=== PATIENT | male | born 1995 | race Caucasian/White ===

== ENCOUNTER 2016-08-18 17:46 | Emergency (ER) | payer OTHER ==
--- NOTE | 2016-08-18 19:05 | EDPHY ---
H & P Stated Complaint: sent from [facility] with spontaneous pneumo Time Seen by Provider: 08/18/16 17:56 HPI/ROS: CHIEF COMPLAINT: Spontaneous pneumothorax HISTORY OF PRESENT ILLNESS: The patient is referred to the emergency department from the [facility] after he was noted to have a spontaneous pneumothorax. The patient has approximately 10-15 percent right- sided pneumothorax which was diagnosed on chest x-ray. The patient reportedly developed symptoms while running yesterday. The patient denies prior history of pneumothorax. The patient denies additional complaints of lightheadedness, dizziness or significant pain. The patient has no significant past medical history. The patient takes no medications. The patient does not smoke. REVIEW OF SYSTEMS: A comprehensive 10 point review of systems is otherwise negative aside from elements mentioned in the history of present illness. Source: Patient Exam Limitations: No limitations - Personal History Current Tetanus/Diphtheria Vaccine: Yes - Medical/Surgical History Hx Asthma: No Hx Chronic Respiratory Disease: No Hx Diabetes: No Hx Cardiac Disease: No Hx Renal Disease: No Hx Cirrhosis: No Hx Alcoholism: No Hx HIV/AIDS: No Hx Splenectomy or Spleen Trauma: No Other PMH: denies - Social History Smoking Status: Never smoked - Physical Exam Exam: General Appearance: Alert, no distress Eyes: Pupils equal and round no pallor or injection ENT, Mouth: Mucous membranes moist Respiratory: There are no retractions, lungs are clear to auscultation Cardiovascular: Regular rate and rhythm Gastrointestinal: Abdomen is soft and nontender, no masses, bowel sounds normal Neurological: A&O, normal motor function, normal sensory exam, normal cranial nerves Skin: Warm and dry, no rashes Musculoskeletal: Neck is supple nontender Extremities: symmetrical, full range of motion Constitutional: Initial Vital Signs Temperature (C) 36.4 C 08/18/16 17:50 Heart Rate 63 08/18/16 17:50 Respiratory Rate 18 08/18/16 17:50 Blood Pressure 132/79 H 08/18/16 17:50 O2 Sat (%) 98 08/18/16 17:50 O2 Delivery Mode Room Air Allergies/Adverse Reactions: amoxicillin Allergy (Verified 08/18/16 17:50) Home Medications: Medication Instructions Recorded NK [No Known Home Meds] 08/18/16 Medical Decision Making - Diagnostics Imaging Results: Imaging Impressions Chest X-Ray 08/18/16 17:57 Impression: Equivocal increase in size of a [id number] right pneumothorax. Findings discussed with Kieran DENNIS 08/18/2016 at 18:50. ED Course/Re-evaluation: The patient presents to the ED with a small right apical pneumothorax. Consultation was made with Dr. Flores from General surgery who evaluated the patient in the ED. Given the size of the pneumothorax, our plan at this point will be observation this evening and a repeat chest x-ray in the ED tomorrow morning. If the pneumothorax has increased in size at that point time a chest tube will be placed. The patient is instructed to return to the ED for increasing chest pain, difficulty breathing or other concerns. Differential Diagnosis: Differential diagnosis considered includes pneumothorax, rib fracture, hemothorax Departure - Departure Disposition: Home, Routine, Self-Care Clinical Impression: Spontaneous pneumothorax Condition: Good Instructions: Spontaneous Pneumothorax (ED) Additional Instructions: 1. Please return to the emergency department tomorrow at 9 o'clock in the morning for a repeat chest x-ray. 2. Please return to the ED sooner for any severe difficulty breathing or other concerns. Referrals: SHAHAB,UNKNOWN [Other] - As per Instructions
[2016-08-18 19:34] VITALS: BP 122/60; PULSE 54; RESP 16; TEMP 98.1; O2SAT 100
--- NOTE | 2016-08-19 05:58 | GCON ---
[f rep st] CONSULTATION REFERRING PHYSICIAN: Miguel Manzanares MD REASON FOR CONSULTATION: Spontaneous right pneumothorax. HISTORY: The patient is a 21-year-old white male, who was doing a [place] 21 mile run yesterday, when towards the end of his marathon, he stopped to take a break and had a snack. When he stood up, he all of a sudden felt a pain in his right chest, and truly had [place]. He presented today for evaluation and was found on chest x-ray to have a 15% spontaneous right pneumothorax. He does not smoke. He has never had a prior pneumothorax, and there was as mentioned no trauma. He is possibly allergic to amoxicillin. He has just stopped using Vyvanse for ADD. He is very comfortable at this time. PHYSICAL EXAMINATION: GENERAL: On examining him, he is awake and alert, in no acute distress. VITAL SIGNS: Normal. LUNGS: Clear to auscultation. Breath sounds in fact are symmetrical. It is difficult to detect any decreasing breath sounds at the apex of his right chest. ASSESSMENT AND PLAN: At this point, I feel he does not necessarily need a chest tube given the 24 hours since onset. I do think he needs to have a followup examination and that will be scheduled for tomorrow morning. I have discussed with him the possibility of a recurrent pneumothorax on either side, and I have indicated that if should that occur, a CAT scan will be performed to see if there are any blebs that should be removed and that pleurodesis would be strongly considered. He understands that should he become short of breath this evening, that he should return immediately to the ER. He understands he should not return to athletic activity until his lung is documented to be completely reinflated for a period of three weeks. /[id number]/MODL MTDD
== END 2016-08-18 19:25 | disposition home or self-care (01) ==
DX: J93.83 Other pneumothorax (principal)

== ENCOUNTER 2016-08-19 09:00 | Emergency (ER) | payer OTHER ==
--- NOTE | 2016-08-19 09:04 | EDPHY ---
H & P Time Seen by Provider: 08/19/16 09:03 HPI/ROS: CHIEF COMPLAINT: Return for chest xray HISTORY OF PRESENT ILLNESS: Patient was in the emergency department yesterday for pneumothorax and was instructed to return today for repeat chest x-ray. Consultation yesterday was obtained with Dr. Flores. He was running the [employer] [place] on Thursday 2 days ago and when he was on the top of [facility] at 11:00 a.m. stood up and noticed right-sided chest discomfort and shortness of breath. He was able to stumble down to the trail head and was seen yesterday evening at the [facility] service and had a chest x-ray that showed a right-sided pneumothorax. He was here last night and the plan was to return for x-ray today to see if it is enlarged. Generally feels about the same or maybe a little bit better. Right-sided discomfort and some mild shortness of breath, not positional or exertional. Started as outlined above. REVIEW OF SYSTEMS: Eye: no change in vision ENT: no sore throat Cardiac: HPI Pulmonary: HPI Abdomen: no vomiting, diarrhea, abdominal pain Musculoskeletal: no back pain Skin: no rash Neuro: no headache Constitutional: no fever : no urinary symptoms A comprehensive 10 point review of systems is otherwise negative aside from elements mentioned in the history of present illness. PAST MEDICAL HISTORY: Negative except for as above Social history: Student, nonsmoker General Appearance: Alert and conversant, cooperative. Eyes: No scleral icterus. ENT, Mouth: Normal mucous membranes. Respiratory: Decreased breath sounds on the right. Cardiovascular: Regular rate and rhythm. Gastrointestinal: Abdomen is soft and non tender. Neurological: Alert and oriented x3. Normally conversant. Face symmetric, normal movement and sensation in all extremities. Skin: Warm and dry, no rashes. Musculoskeletal: No peripheral edema and no joint swelling. No calf tenderness. Psychiatric: Not agitated. Emergency Department course/MDM: Repeat chest x-ray ordered. 956: Seen by Sandra, who personally saw and evaluated the patient. His recommendation is repeat x-ray in Dr. Breaux office on , no chest tube now. Smoking Status: Never smoked Constitutional: Initial Vital Signs Temperature (C) 36.4 C 08/19/16 09:02 Heart Rate 58 L 08/19/16 09:02 Respiratory Rate 22 H 08/19/16 09:02 Blood Pressure 123/67 H 08/19/16 09:02 O2 Sat (%) 99 08/19/16 09:02 O2 Delivery Mode Room Air Allergies/Adverse Reactions: amoxicillin Allergy (Verified 08/19/16 09:01) Home Medications: Medication Instructions Recorded NK [No Known Home Meds] 08/18/16 Medical Decision Making - Diagnostics Imaging Results: Imaging Impressions Chest X-Ray 08/19/16 09:04 Impression: Stable mild to moderate right pneumothorax. Chest x-ray personally interpreted shows right-sided pneumothorax, stable since yesterday. Differential Diagnosis: Differential diagnosis considered for shortness of breath including but not limited to pulmonary infectious process, COPD, asthma, pulmonary embolus and congestive heart failure. Consult/Admit Bed Type: [place] [id number] Departure - Departure Disposition: Home, Routine, Self-Care Clinical Impression: Pneumothorax on right Condition: Good Instructions: Spontaneous Pneumothorax (ED) Additional Instructions: Follow-up with Dr. Cee on in the office for recheck as per Dr. Flores instructions. 1st you need to go to x-ray for a repeat chest film at 12:15 p.m.; then to dr. Earl' office. Return for increasing shortness of breath or chest pain. Referrals: NICK WESTBROOK [Other] - As per Instructions Jorge Flores MD [Medical Doctor] - As per Instructions El Cee MD [Medical Doctor] - 08/21/16 1:15 pm
[2016-08-19 09:05] VITALS: TEMP 97.5
[2016-08-19 10:08] VITALS: BP 123/73; PULSE 55; RESP 16; O2SAT 98
--- NOTE | 2016-08-19 10:35 | GCON ---
[f rep st] CONSULTATION REASON FOR CONSULTATION: Followup on pneumothorax. Please see consultation note from yesterday. The patient returns. Followup chest x-ray shows an essentially stable 15% pneumothorax. I do not f eel a chest tube will be necessary at this point. His lungs are clear to auscultation. He will fol low up with Dr. El Cee on . He will present to the hospital at approximately 12:15 to 12:20 for a chest x-ray, and will go to Dr. Cee's office at 1:15. The patient understand s that his activities are limited to gentle walking, specifically he is not to do weight lifting or vigorous exercises. He understands that should he become short of breath, he is to return to the ER for evaluation immediately. He understands the instructions given yesterday. /[id number]/MODL
== END 2016-08-19 10:08 | disposition home or self-care (01) ==
DX: J93.9 Pneumothorax, unspecified (principal)